=== PATIENT | male | born 1935 | race Caucasian/White ===

== ENCOUNTER 2017-10-15 09:26 | Outpatient (CLI) | payer OTHER | END 2017-10-15 09:42 | disposition home or self-care (01) | LOC: SONOGRAMA 09:26 | DX: C61 Malignant neoplasm of prostate (principal) ==

== ENCOUNTER 2017-12-28 21:00 | Emergency (ER) | payer OTHER ==
[~2017-12-28] VITALS: Ht 172.7 cm; Wt 78.0 kg
[2017-12-28] MEDS ORDERED: LIPITOR40 MG PO (21:41)
[2017-12-28] MEDS ORDERED: ZOCOR20 MG PO (21:41)
[2017-12-28] MEDS ORDERED: XARELTO1 EACH PO (21:41)
[2017-12-28] MEDS ORDERED: COZAAR25 MG PO (21:42)
[2017-12-28] MEDS ORDERED: METOPROLOL SUC100 MG PO (21:42)
[2017-12-29] MEDS ORDERED: LEVAQUIN750 MG PO (03:33)
== END 2017-12-29 03:52 | disposition home or self-care (01) ==
LOC: ER 21:00
DX: R41.0 Disorientation, unspecified (principal); L03.312 Cellulitis of back [any part except buttock and flank]; D17.79 Benign lipomatous neoplasm of other sites

== ENCOUNTER 2018-09-20 10:31 | Emergency (ER) | payer OTHER ==
[~2018-09-20] VITALS: Ht 172.7 cm; Wt 81.6 kg
[~2018-09-20 10:31] MED LIST: COZAAR25 MG PO; LEVAQUIN750 MG PO; LIPITOR40 MG PO; METOPROLOL SUC100 MG PO; XARELTO1 EACH PO; ZOCOR20 MG PO
== END 2018-09-20 14:12 | disposition home or self-care (01) ==
LOC: ER 10:31
DX: G89.11 Acute pain due to trauma (principal); R07.89 Other chest pain

== ENCOUNTER 2021-04-17 08:05 | Outpatient (CLI) | payer OTHER | END 2021-04-17 08:10 | disposition home or self-care (01) | LOC: PPH VACUNA 08:05 | PROVIDERS: ATTEND Emergency Medicine Pediatric Emergency Medicine | DX: Z23 Encounter for immunization (principal) ==

== ENCOUNTER 2021-07-08 18:03 | Emergency (ER) | payer OTHER ==
[~2021-07-08] VITALS: Ht 167.6 cm; Wt 81.6 kg
== END 2021-07-08 22:38 | disposition home or self-care (01) ==
LOC: ER 18:03
DX: S43.014A Anterior dislocation of right humerus, initial encounter (principal); W01.198A Fall on same level from slipping, tripping and stumbling with subsequent striking against other object, initial encounter; Y93.89 Activity, other specified; Y92.018 Other place in single-family (private) house as the place of occurrence of the external cause; Y99.8 Other external cause status

== ENCOUNTER 2021-08-19 11:10 | Outpatient (CLI) | payer OTHER | END 2021-08-19 11:23 | disposition home or self-care (01) | LOC: MRI 11:10 | PROVIDERS: ATTEND Physical Medicine & Rehabilitation | DX: M75.101 Unspecified rotator cuff tear or rupture of right shoulder, not specified as traumatic (principal); M25.511 Pain in right shoulder | CPT/HCPCS: 73221 ==

== ENCOUNTER 2022-08-07 16:40 | Emergency (ER) | payer OTHER ==
[~2022-08-07] VITALS: Ht 175.3 cm; Wt 68.0 kg
[2022-08-07] MEDS ORDERED: TOPROL XL25 M1 (17:02)
[2022-08-07] MEDS ORDERED: ELIQUIS5 MG (17:02)
[2022-08-07] MEDS ORDERED: RESTORIL15 MG (17:02)
[2022-08-07] MEDS ORDERED: NAMENDA5 MG (17:02)
[2022-08-07] MEDS ORDERED: AMLODIPINE-OLM1 EACH (17:03)
[2022-08-07] MEDS ORDERED: CITALOPRAM20 MG/10 M (17:03)
== END 2022-08-07 22:50 | disposition home or self-care (01) ==
LOC: ER 16:40
DX: R53.1 Weakness (principal); I10 Essential (primary) hypertension; Z86.73 Personal history of transient ischemic attack (TIA), and cerebral infarction without residual deficits; Z20.822 Contact with and (suspected) exposure to COVID-19

== ENCOUNTER 2022-11-18 19:18 | Emergency (ER) | payer OTHER ==
[~2022-11-18] VITALS: Ht 170.2 cm; Wt 61.2 kg
[~2022-11-18 19:18] MED LIST changes: +AMLODIPINE-OLM1 EACH; +CITALOPRAM20 MG/10 M; +ELIQUIS5 MG; +NAMENDA5 MG; +RESTORIL15 MG; +TOPROL XL25 M1
== END 2022-11-18 23:57 | disposition home or self-care (01) ==
LOC: ER 19:18
DX: R63.0 Anorexia (principal); G30.9 Alzheimer's disease, unspecified; F02.80 Dementia in other diseases classified elsewhere, unspecified severity, without behavioral disturbance, psychotic disturbance, mood disturbance, and anxiety; I49.8 Other specified cardiac arrhythmias; I10 Essential (primary) hypertension; N39.0 Urinary tract infection, site not specified; Z20.822 Contact with and (suspected) exposure to COVID-19